=== PATIENT | female | born 1975 | race Caucasian/White ===

== ENCOUNTER 2016-11-29 13:42 | Emergency (ER) | payer OTHER ==
[~2016-11-29 13:42] MED LIST: AMOXICILLIN875 MG PO; FLOXIN OTIC5 M1 AD; HYDROCHLOROTHIA25 MG PO; MOTRIN400 MG PO; PRENATAL VITAMIN; ZANTAC PO
== END 2016-11-29 14:15 | disposition home or self-care (01) ==
LOC: SED 13:42
DX: H66.91 Otitis media, unspecified, right ear (principal); H60.91 Unspecified otitis externa, right ear; Z79.899 Other long term (current) drug therapy
CPT/HCPCS: 99282

== ENCOUNTER 2017-03-05 11:59 | Emergency (ER) | payer OTHER ==
[~2017-03-05] VITALS: Ht 165.1 cm; Wt 81.6 kg
--- NOTE | ~2017-03-05 | CT71 ---
[facility] A Service of [facility] RADIOLOGY TEXT RESULTS PATIENT: WHITNEY GOODEN LOCATION: SED : 75 UNIT #: [id number] AGE: [address]: Carrie Hernandez MD SEX: F ORDER DR: [id number] [place] [id number] E MR#: [id number] #: [id number] NAME: WHITNEY GOODEN : 1975 SEX: F STUDY DATE/TIME: 03/05/2017 13:09 UNIT: SED ROOM: STUDY DESCRIPTION: CT Head Wo Contrast Attending Physician: Carrie Hernandez M.D. Ordering Physician: Carrie Hernandez M.D. Primary Care Physician: Primary Care Physician No MEDICAL IMAGING REPORT This report is preliminary unless electronic signature is present. EXAM Head CT without HISTORY Pain, severe pain in the back of the head and trouble seeing for a couple of days. No cancer history or trauma history. COMMENT Routine noncontrast head CT is reviewed. Comparison is from 09/02/2016. This CT exam was performed with one or more of the following radiation dose reduction techniques: Automatic exposure control, adjustment of mA and/or kV according to patient size, and iterative reconstruction. There is no displaced calvarial fracture. The visualized paranasal sinuses and mastoid air cells are clear. There is no evidence for acute intracranial hemorrhage or extraaxial fluid collection. The ventricles are normal in size and configuration, and the d[place]-white junction is well maintained. The basilar cisterns are patent. No acute cortical infarct is suspected but if this is of clinical concern, follow-up imaging is recommended preferably with MRI if the patient is a candidate. There is no intracranial mass effect. IMPRESSION 1. Negative noncontrast head CT. Dictated by... Kelin Andrews M.D. THIS IS AN ELECTRONICALLY VERIFIED REPORT Kelin Andrews M.D. at 03/06/2017 7:56 AM [facility]/psc [facility] A Service of [facility] RADIOLOGY TEXT RESULTS PATIENT: WHITNEY GOODEN LOCATION: [facility] : 75 UNIT #: [id number] AGE: [address]: Carrie Hernandez MD SEX: F ORDER DR: TD: 03/05/2017 22:26 JOB #: [id number] MEDICAL IMAGING REPORT Page 1 of 1
[2017-03-05] MEDS ORDERED: LORTAB 5-325 M1 EACH (12:09)
[2017-03-05] MEDS ORDERED: ANXIETY MEDS (12:10)
[2017-03-05 12:45] LABS: BASOPHIL% 0.4 % (0-2.5); EOSINOPHIL# 0.2 X10e3 (0-0.7); EOSINOPHIL% 1.7 % (0.0-7.0); HEMATOCRIT 38.9 % (35.0-45.0); HEMOGLOBIN 13.6 gm/dL (12.0-16.0); LYMPHOCYTE# 2.7 X10e3 (1.0-3.5); LYMPHOCYTE% 26.8 % (17.0-45.0); MEAN CELL VOLUME 85.1 FL (83-96); MEAN CORPUSCULAR HEMOGLOBIN 29.7 PG (28-34); MEAN CORPUSCULAR HGB CONC 34.9 g/dL (30-36); MEAN PLATELET VOLUME 7.1 FL (6.5-11.5); MONOCYTE# 0.8 X10e3 (0-1.0); MONOCYTE% 8.2 % (3.0-12.0); NEUTROPHIL# 6.4 X10e3 (1.5-7.1); NEUTROPHIL% 62.9 % (40-75); PLATELET COUNT 291 X10e3 (140-420); RED BLOOD COUNT 4.56 X10e (3.90-5.30); RED CELL DISTRIBUTION WIDTH 12.5 % (11.0-15.5); WHITE BLOOD COUNT 10.1 X10e3 (4.0-10.5)
[2017-03-05 12:49] LABS: DIFF IND NO
[2017-03-05 13:02] LABS: BUN/CREATININE RATIO 17.14; CALCIUM SERUM 8.3 mg/dL (8.4-10.2); CREATININE SERUM 0.7 mg/dL (0.6-1.4); GLOM FILT RATE Estimated 107.6 mL/min (>60); POTASSIUM 3.2 mmol/L (3.5-5.1)
== END 2017-03-05 14:01 | disposition home or self-care (01) ==
LOC: SED 11:59
PROVIDERS: Student in an Organized Health Care Education/Training Program
DX: R51 Headache (principal); F41.9 Anxiety disorder, unspecified; G89.29 Other chronic pain; I10 Essential (primary) hypertension; Z90.49 Acquired absence of other specified parts of digestive tract; Z79.899 Other long term (current) drug therapy
CPT/HCPCS: 36415; 70450; 80048; 84703; 85025; 96361; 96374; 96375; 99284; J1885; J3360